=== PATIENT | female | born 1950 | race Caucasian/White ===

== ENCOUNTER 2017-02-09 13:36 | Day surgery (SDC) | payer MEDICARE, OTHER ==
[~2017-02-09] VITALS: Ht 157.5 cm; Wt 67.0 kg
[2017-02-09] VITALS (16 sets, daily range): BP systolic 137–163; BP diastolic 64–91; PULSE 62–88; RESP 18–24; Ht 157.5 cm; Wt 67.0 kg
[~2017-02-09 13:36] MED LIST: ASPI-664 PO; CALC-277 PO; ETOMIDATE 20 MG INJ ONE; FOSI40TA3 PO; GABA300C16 PO; NIFE60TA7 PO
[2017-02-09] MEDS ORDERED: CELE200C PO (14:20)
[2017-02-09] MEDS ORDERED: FOSI20TA PO (14:20)
[2017-02-09] MEDS ORDERED: DEXL60CA2 PO (14:21)
[2017-02-09] MEDS ORDERED: GABA400C14 PO (14:21)
[2017-02-09] MEDS ORDERED: CIPR500T4 PO (14:22)
[2017-02-09] MEDS ORDERED: DICL100G37 TOP (14:23)
[2017-02-09] MEDS ORDERED: MIDAZOLAM 1 MG/ML 2 ML INJ ONE (14:38)
[2017-02-09] MEDS ORDERED: FENTAnyl 50 MCG/ML VIAL ONE (14:38)
[2017-02-09 14:45] LABS: HEMATOCRIT 37.4 % (37.0-47.0); HEMOGLOBIN 12.8 g/dl (12.0-16.0)
[2017-02-09] MEDS ORDERED: IOHEXOL 300MG/ML 30 ML BTL ONE (14:57)
[2017-02-09 14:58] LABS: ALBUMIN 4.3 g/dl (3.3-4.9); ALBUMIN/GLOBULIN RATIO 1.22; BILIRUBIN,INDIRECT 0.3 mg/dl (0-1.1); BILIRUBIN,TOTAL 0.3 mg/dl (0.2-1.3); TOTAL PROTEIN 7.8 g/dl (6.1-8.1)
[2017-02-09] MEDS ORDERED: LIDOCAINE 2% (SDV) 5 ML INJ ONE (15:29)
[2017-02-09] MEDS ORDERED: ROCURONIUM 50 MG INJ ONE (15:29)
[2017-02-09] MEDS ORDERED: PROPOFOL 20 ML ONE (15:29)
[2017-02-09] MEDS ORDERED: NEOSTIGMINE 3 MG/3 ML SYRINGE ONE (15:39)
[2017-02-09] MEDS ORDERED: GLYCOPYRROLATE 0.4 MG INJ ONE (15:39)
[2017-02-09] MEDS ORDERED: ONDANSETRON 4 MG INJ ONE (15:39)
--- NOTE | 2017-02-09 15:44 | OPR ---
Date/Time of Note Date/Time of Note DATE: 02/09/17 TIME: 15:35 Operative Report Procedure Date: Feb 09, 2017 Preoperative Diagnosis She has a CBD stent in place she also has a pancreatic duct stent in place both the stents need to be removed History of a pseudocyst of the pancreas because of that pancreatic duct stent was placed Stricture of the distal bile duct because of that CBD stent was placed Postoperative Diagnosis CBD stent in place pancreatic duct stent in place both were removed to be due to stones were noted on cholangiogram Common bile duct still appeared to be dilated brushing of the distal bile duct was done because it looked like a stricture Operation Performed ERCP CBD stent and removal of the pancreatic brushing of distal bile duct balloon sweeping of the cbd done Surgeon: TYLER BROOKS MD Anesthesiologist: JASMINA PATEL MD Estimated Blood Loss: none Transfusion Required: no Specimens brushing of the distal cbd Grafts/Implants None Tubes/Drains None Complications: no Pt Condition Post Procedure: stable Disposition: PACU Indications cbd stent and pancreatic duct stents needed to be removed to prevent complications Operative\Procedure Findings ERCP after the informed written consent is obtained patient was intubated by anesthesiologist Dr. patel While the patient was in prone position Olympus video side viewing scope was inserted into the oropharynx and then into the esophagus stomach and duodenum. Both pancreatic and CBD stents were noted to be in the place both stents removed independently Common bile was injected with the balloon that was found to be dilated no filling defects are noted balloon sweeping performed bile duct brushings of the distal cbd done as it appeared to be narrowed. procedure was terminated Wait for the brushings from the CBD And monitor the liver functions Procedure Description cc dr brooks cc TYLER Herbert MD Feb 09, 2017 15:44
[2017-02-09 15:47] LABS: CALCIUM 9.6 mg/dl (8.4-10.2); CREATININE 0.75 mg/dl (0.44-1.00); POTASSIUM 3.4 mmol/L (3.5-5.1)
--- NOTE | 2017-02-09 16:58 | RADRPT ---
PROCEDURE: Intraoperative imaging for ERCP with fluoroscopy. CLINICAL INDICATION: Right upper quadrant pain. Intraoperative. TECHNIQUE: 8 images of the right upper quadrant of the abdomen were obtained in the operating room with an image intensifier. No radiologist was in attendance. 58 seconds of fluoroscopy time was u sed. COMPARISON: No prior study is available for comparison. FINDINGS: Images demonstrate the endoscope in position. Surgical clips are present in the right upper quadran t very contrast was injected into the common bile duct. Common bile duct is dilated. There is no f illing defect. A balloon sweep was made. IMPRESSION: 1. ERCP as described above. RPTAT: QQ .Norbert Juarez MD, MD Date Time Electronically viewed and signed by .Norbert Juarez MD, on 02/09/2017 16:58 .R/
== END 2017-02-09 17:46 | disposition home or self-care (01) ==
LOC: SDS 13:36
PROVIDERS: ATTEND Internal Medicine Gastroenterology
DX: K83.1 Obstruction of bile duct (principal); I10 Essential (primary) hypertension; E66.9 Obesity, unspecified; Z68.27 Body mass index [BMI] 27.0-27.9, adult
CPT/HCPCS: 43275; 43278; 74330; 80053; 85014; 85018; 88104; 88305; J2250; J2405; J2710; J3010; Q9967

== ENCOUNTER 2017-05-23 10:09 | Emergency (ER) | payer MEDICARE, OTHER ==
[~2017-05-23] VITALS: Ht 157.5 cm; Wt 69.1 kg
[~2017-05-23 10:09] MED LIST changes: -ASPI-664 PO; -CALC-277 PO; +CELE200C PO; +CIPR500T4 PO; +DEXL60CA2 PO; +DICL100G37 TOP; -ETOMIDATE 20 MG INJ ONE; +FOSI20TA PO; -FOSI40TA3 PO; -GABA300C16 PO; +GABA400C14 PO; -NIFE60TA7 PO
[2017-05-23 10:15] VITALS: Ht 157.5 cm; Wt 69.1 kg
[2017-05-23] MEDS ORDERED: ONDANSETRON 4 MG INJ IV STA (10:32)
[2017-05-23] MEDS ORDERED: morphine 4 MG/ML VIAL IV STA (10:32)
[2017-05-23] MEDS ORDERED: NIFE60TA24 PO (11:06)
[2017-05-23] MEDS ORDERED: MIRA25TA PO (11:07)
[2017-05-23] MEDS ORDERED: CRAN425C2 PO (11:07)
--- NOTE | 2017-05-23 11:12 | RADRPT ---
PROCEDURE: CT ABDOMEN AND PELVIS WITHOUT CONTRAST. CLINICAL INDICATION: Right flank pain TECHNIQUE: CT scan of the abdomen and pelvis without contrast was performed on a multidetector hig h-resolution CT scanner. The patient was scanned without intravenous contrast. Coronal and sagittal reformatted images were obtained from the axial source images. Images were reviewed on a high-resol [employer] PACS workstation. The total exam CTDI equals 11.2 mGy and the total exam DLP equals 577.7 mGy- cm. One or more of the following dose reduction techniques were used: Automated exposure control. Adjustment of the mA and/or kV according to patient size. Use of iterative reconstruction technique. DICOM images are available COMPARISON: None FINDINGS: CT abdomen: The lung bases are clear. The heart size is within limits. There is no significant pericardial effus ion. Hepatic morphology is within normal limits. No gross contour deforming masses. Status post cholecyst ectomy. The spleen and pancreas are within normal limits. Both adrenal glands are within normal limits. Both kidneys are in normal anatomic position. There is are several punctate nonobstructing stone wit hin the left kidney. No gross ureteric calculi within both kidneys. No evidence of obstruction or hy dronephrosis. The visualized GI tract demonstrate normal caliber loops of small large bowel. No evidence of bowel obstruction. The appendix is within normal limits. Atherosclerotic calcification of the aorta is identified. There is no significant retroperitoneal ly mphadenopathy. CT pelvis: The bladder is within normal limits. The uterus is retroverted. The rectosigmoid colon is within nor mal limits. No significant free fluid. No pelvic lymphadenopathy. The visualized osseous structures demonstrate multilevel degenerative disease of the spine. There is grade 1-2 anterolisthesis of L4-L5. There is also grade 1 retrolisthesis of L5-S1. There is severe bilateral neural foramen stenosis and spinal canal stenosis at the levels of L4-S1. IMPRESSION: 1. Punctate left-sided nonobstructing nephrolithiasis. There is no evidence of obstruction or hydron ephrosis within both kidneys. No gross ureteric calculi. 2. No evidence of acute intra-abdominal/pelvic inflammatory process. No evidence of bowel obstructio n. The appendix is within normal limits. Stool filled loops of large bowel suggestive of constipatio n. 3. Atherosclerosis of the aorta. 4. Status post cholecystectomy. 5. No evidence of free fluid or free air. No gross focal fluid collections. 6. Multilevel degenerative disease of lumbosacral spine. Grade 1 - to anterolisthesis of L4-L5 and g rade 1 retrolisthesis of L5-S1. There is severe bilateral neural foramen stenosis and spinal canal s tenosis at the levels of L4-L5 and L5-S1. RPTAT: AARR Physician Stanislav Date Time Electronically viewed and signed by Dennis Redman Physician on 05/23/2017 11:12 JL/
[2017-05-23 11:13] LABS: BASOPHIL # 0.1 10^3/ul (0.0-0.1); BASOPHILS % 1.6 % (0.0-2.0); EOSINOPHILS # 0.3 10^3/ul (0.0-0.5); EOSINOPHILS % 3.9 % (0.0-7.0); HEMATOCRIT 39.3 % (37.0-47.0); HEMOGLOBIN 13.3 g/dl (12.0-16.0); LYMPHOCYTES # 2.6 10^3/ul (0.8-2.9); MEAN CORPUSCULAR HEMOGLOBIN 30.7 pg (29.0-33.0); MEAN CORPUSCULAR HGB CONC 33.8 g/dl (32.0-37.0); MEAN CORPUSCULAR VOLUME 90.8 fl (82.0-101.0); MEAN PLATELET VOLUME 10.1 fl (7.4-10.4); MONOCYTE # 0.5 10^3/ul (0.3-0.9); MONOCYTES % 5.7 % (0.0-11.0); NEUTROPHIL # 5.1 10^3/ul (1.6-7.5); NEUTROPHILS % 58.3 % (39.0-77.0); PLATELET COUNT 306 10^3/UL (140-415); RED BLOOD COUNT 4.33 10^6/ul (4.20-5.40); RED CELL DISTRIBUTION WIDTH 13.2 % (11.5-14.5); WHITE BLOOD COUNT 8.8 10^3/ul (4.8-10.8)
[2017-05-23 11:37] LABS: ALANINE AMINOTRANSFERASE 32 IU/L (13-69); ALBUMIN 4.3 g/dl (3.3-4.9); ALKALINE PHOSPHATASE 79 IU/L (42-121); ANION GAP 15 (8-16); ASPARTATE AMINO TRANSFERASE 22 IU/L (15-46); BILIRUBIN,INDIRECT 0.3 mg/dl (0-1.1); BILIRUBIN,TOTAL 0.3 mg/dl (0.2-1.3); BLOOD UREA NITROGEN 17 mg/dl (7-20); CALCIUM 9.7 mg/dl (8.4-10.2); CARBON DIOXIDE 28 mmol/L (21-31); CHLORIDE 107 mmol/L (97-110); CREATININE 0.69 mg/dl (0.44-1.00); GLUCOSE 120 mg/dl (70-220); POTASSIUM 3.5 mmol/L (3.5-5.1); SODIUM 146 mmol/L (135-144); TOTAL PROTEIN 7.6 g/dl (6.1-8.1)
[2017-05-23 11:51] LABS: TROPONIN-I < 0.012 ng/ml (0.00-0.12)
[2017-05-23] MEDS ORDERED: ONDA4TAB14 PO (12:52)
[2017-05-23] MEDS ORDERED: HYDR-902 PO (12:52)
[2017-05-23 12:55] LABS: ADD UMIC NO; UR ASCORBIC ACID NEGATIVE (NEGATIVE); UR BILIRUBIN (Dip) NEGATIVE (NEGATIVE); UR BLOOD (Dip) NEGATIVE (NEGATIVE); UR CLARITY CLEAR (CLEAR); UR COLOR STRAW (YELLOW); UR GLUCOSE (Dip) NEGATIVE (NEGATIVE); UR KETONES (Dip) NEGATIVE (NEGATIVE); UR LEUKOCYTE ESTERASE (Dip) NEGATIVE Leu/ul (NEGATIVE); UR NITRITE (Dip) NEGATIVE (NEGATIVE); UR SPECIFIC GRAVITY (Dip) 1.004 (1.003-1.030); UR TOTAL PROTEIN (Dip) NEGATIVE (NEGATIVE); UR UROBILINOGEN (Dip) NEGATIVE (NEGATIVE)
--- NOTE | 2017-05-23 12:55 | ERD ---
ER Documentation Chief Complaint Chief Complaint R/U/Q pain x yesterday. Addison N/V HPI Patient is a 67-year-old female with a history of bladder infection and pancreas cyst who presents with abdominal pain. She she said that in April of last year she had 2 cyst on her pancreas which needed to be stented. She had her stents removed in January. She started 3 days ago with right upper quadrant abdominal pain which is similar to when she had this pancreas cyst in the past. She called Dr. Tatum who sent her to the ER. She said the pain is constant and sharp in nature. She has no fevers. She has had no nausea, vomiting, or diarrhea. ROS All systems reviewed and are negative except as per history of present illness. Medications Home Meds Active Scripts Ondansetron (Ondansetron Odt) 4 Mg Tab.rapdis, 4 MG PO Q6H Y for NAUSEA AND/OR VOMITING, #10 TAB Prov:IVONE CORRAL MD 05/23/17 Hydrocodone/Acetaminophen ([place] 10-325 Tablet) 1 Each Tablet, 1 TAB PO Q6H Y for PAIN, #7 TAB Prov:IVONE CORRAL MD 05/23/17 Reported Medications Cranberry Extract (Cranberry) 425 Mg Capsule, 425 MG PO DAILY, CAP 05/23/17 Mirabegron (Mybetriq) 25 Mg Tab.er.24h, 25 MG PO DAILY, TAB 05/23/17 Nifedipine* (Afeditab CR*) 60 Mg Tablet.er, 60 MG PO DAILY, #4 05/23/17 Diclofenac Sodium* (Voltaren* Gel) 1% -100 Gm Gel, 2 GM TOP QID Y for PAIN, #1 TUB 02/09/17 Dexlansoprazole (Dexilant) 60 Mg Cap., 60 MG PO DAILY, #30 CAP 02/09/17 Gabapentin* (Gabapentin*) 400 Mg Capsule, 400 MG PO DAILY, #90 CAP 02/09/17 Celecoxib* (Celebrex*) 200 Mg Capsule, 200 MG PO DAILY, CAP 02/09/17 Fosinopril Sodium (Fosinopril Sodium) 20 Mg Tablet, 20 MG PO BID, TAB 02/09/17 Discontinued Reported Medications Ciprofloxacin Hcl* (Ciprofloxacin Hcl*) 500 Mg Tablet, 500 MG PO BID, #14 TAB STARTED 02-07-17 FOR 3 DAYS 02/09/17 Allergies Allergies: Coded Allergies: Penicillins (Verified Allergy, Unknown, 02/09/17) codeine (Verified Adverse Reaction, Unknown, ITCHY HEAD, 02/09/17) PMhx/Soc History of Surgery: Yes (BLADDER REPAIR,RT KNEE,RT SHOULDER,CHOLECYSTECTOMY, STENT FOR PANCREATIC CY) Anesthesia Reaction: No Hx Neurological Disorder: No Hx Respiratory Disorders: Yes (PNA) Hx Cardiac Disorders: Yes (HTN) Hx Psychiatric Problems: No Hx Miscellaneous Medical Probl: No Hx Alcohol Use: No Hx Substance Use: No Hx Tobacco Use: No Smoking Status: Never smoker FmHx Family History: diabetes Physical Exam Vitals Vital Signs Date Time Temp Pulse Resp B/P Pulse Ox O2 Delivery O2 Flow Rate FiO2 05/23/17 13:00 98.2 58 16 128/67 99 Room Air 05/23/17 10:15 97.8 60 19 151/72 99 Physical Exam Const: Moderate distress secondary to pain Head: Atraumatic Eyes: Normal Conjunctiva ENT: Normal External Ears, Nose and Mouth. Neck: Full range of motion..~ No meningismus. Resp: Clear to auscultation bilaterally Cardio: Regular rate and rhythm, no murmurs Abd: Soft, upper quadrant and midepigastric tenderness to palpation without rebound or guarding Skin: No petechiae or rashes Back: No midline or flank tenderness Ext: No cyanosis, or edema Neur: Awake and alert Psych: Normal Mood and Affect Result Diagram: 05/23/17 1035 05/23/17 1035 Results 24 hrs Laboratory Tests Test 05/23/17 10:35 05/23/17 12:30 White Blood Count 8.810^3/ul Red Blood Count 4.3310^6/ul Hemoglobin 13.3g/dl Hematocrit 39.3% Mean Corpuscular Volume 90.8fl Mean Corpuscular Hemoglobin 30.7pg Mean Corpuscular Hemoglobin Concent 33.8g/dl Red Cell Distribution Width 13.2% Platelet Count 53526^3/UL Mean Platelet Volume 10.1fl Neutrophils % 58.3% Lymphocytes % 30.0% Monocytes % 5.7% Eosinophils % 3.9% Basophils % 1.6% Nucleated Red Blood Cells % 0.0/100WBC Neutrophils # 5.110^3/ul Lymphocytes # 2.610^3/ul Monocytes # 0.510^3/ul Eosinophils # 0.310^3/ul Basophils # 0.110^3/ul Nucleated Red Blood Cells # 0.010^3/ul Sodium Level 146mmol/L Potassium Level 3.5mmol/L Chloride Level 107mmol/L Carbon Dioxide Level 28mmol/L Anion Gap 15 Blood Urea Nitrogen 17mg/dl Creatinine 0.69mg/dl Glucose Level 120mg/dl Calcium Level 9.7mg/dl Total Bilirubin 0.3mg/dl Direct Bilirubin 0.00mg/dl Indirect Bilirubin 0.3mg/dl Aspartate Amino Transf (AST/SGOT) 22IU/L Alanine Aminotransferase (ALT/SGPT) 32IU/L Alkaline Phosphatase 79IU/L Troponin I < 0.012ng/ml Total Protein 7.6g/dl Albumin 4.3g/dl Globulin 3.30g/dl Albumin/Globulin Ratio 1.30 Lipase 57U/L Urine Color STRAW Urine Clarity CLEAR Urine pH 7.0 Urine Specific [place] 1.004 Urine Ketones NEGATIVEmg/dL Urine Nitrite NEGATIVEmg/dL Urine Bilirubin NEGATIVEmg/dL Urine Urobilinogen NEGATIVEmg/dL Urine Leukocyte Esterase NEGATIVELeu/ul Urine Hemoglobin NEGATIVEmg/dL Urine Glucose NEGATIVEmg/dL Urine Total Protein NEGATIVEmg/dl Current Medications Medications (Trade) Dose Ordered Sig/Alesha Route PRN Reason Start Time Stop Time Status Last Admin Dose Admin Morphine Sulfate (morphine) 4 mg ONCE STAT IV 05/23/17 10:32 05/23/17 10:33 DC 05/23/17 12:23 Ondansetron HCl (Zofran Inj) 4 mg ONCE STAT IV 05/23/17 10:32 05/23/17 10:33 DC 05/23/17 12:23 Procedures/MDM EKG read by me: Rate/Rhythm: Sinus bradycardia at a rate of 48 Intervals: Normal Impression: Bradycardia without ischemia CT abdomen pelvis shows no surgical process per radiology. Patient is a 67-year-old female presents with abdominal pain. Her laboratory studies are basically normal. CT scan shows no surgical process. At this point I doubt cholecystitis, pancreatitis, appendicitis, or bowel obstruction. Departure Diagnosis: Primary Impression: Abdominal pain Abdominal location: generalized Qualified Code: R10.84 - Generalized abdominal pain Condition: Fair Patient Instructions: Abdominal Pain Referrals: ADRIANNE NELSON MD Additional Instructions: Visite a li mdico maana para un EXAMEN.Regrese a estas instalaciones si no se mejora ernie esperbamos o ernie le dijimos. IVONE CORRAL MD May 23, 2017 12:55
[2017-05-23 13:00] VITALS: BP 128/67; PULSE 58; RESP 16; TEMP 98.2
== END 2017-05-23 13:01 | disposition home or self-care (01) ==
LOC: E/R 10:09
DX: R10.84 Generalized abdominal pain (principal); I10 Essential (primary) hypertension
CPT/HCPCS: 36415; 74176; 80053; 81003; 83690; 84484; 85025; 93005; 96374; 96375; 99285; J2270; J2405